=== PATIENT | male | born 1955 | race Caucasian/White ===

== ENCOUNTER 2018-11-07 05:27 | Observation (INO) | payer OTHER ==
--- OUTSIDE RECORDS SUMMARY | 2018-11-07 05:29 | XMS REPORT ---
:1955 Author Organization [facility] Address [address] [place] [address] [address]. [address] [place] [address] Care Team Providers Name Role Phone Unavailable Unavailable Unavailable Payers Payer Name Policy Type Policy Number Effective Date Expiration Date Problems This patient has no known problems. Allergies, Adverse Reactions, Alerts Allergy Allergy Status Severity Reaction(s) Onset Inactive Treating Comments Name Type Date Date Clinician No Known DA Active U 2018-04 Drug - Allergies 00:00:0 0 seasonal DA Active NV 2018-04 allergies -13 00:00:0 0 No Known DA Active NV 2011-01 Drug - Allergies 00:00:0 0 Medications This patient has no known medications.
--- NOTE | 2018-11-07 06:07 | ER ---
Nurse's Notes [facility] Name: Conner Hargrove Jr Age: 63 yrs Sex: Male : 1955 Arrival Date: 11/07/2018 Time: 05:31 Bed 16 Private MD: Diagnosis: Essential (primary) hypertension;Other chest pain;Hypokalemia Presentation: 11/07 05:15 Presenting complaint: EMS states: PT reports having chest pain that started at 0200, jb4 comes and goes, denies SOB. Radiates to right shoulder and back, reports having chills. 05:15 Transition of care: patient was not received from another setting of care. Onset of jb4 symptoms was November 07, 2018. Risk Assessment: Do you want to hurt yourself or someone else? Patient reports no desire to harm self or others. Initial Sepsis Screen: Does the patient meet any 2 criteria? No. Patient's initial sepsis screen is negative. Does the patient have a suspected source of infection? No. Patient's initial sepsis screen is negative. Care prior to arrival: Medication(s) given: ASA, 81 mg, x 4, IV initiated. 20 GA, in the left antecubital area. 05:15 Method Of Arrival: EMS: [facility] jb4 05:15 Acuity: PAKO 3 jb4 Historical: - Allergies: 05:15 No Known Allergies; jb4 - Home Meds: 05:15 celecoxib Oral [Active]; chlorthalidone Oral [Active]; jb4 - PMHx: 05:15 Edema; jb4 - PSHx: 05:15 right knee; right eye; jb4 - Immunization history:: Adult Immunizations up to date. - Social history:: Smoking status: Patient/guardian denies using tobacco, Patient/guardian denies using alcohol. - Ebola Screening: : No symptoms or risks identified at this time. - Family history:: not pertinent. Screenin:15 Abuse screen: Denies threats or abuse. Nutritional screening: No deficits noted. jb4 Tuberculosis screening: No symptoms or risk factors identified. Fall Risk IV access (20 points). Total Collins Fall Scale indicates No Risk (0-24 pts). Assessment: 05:15 General: Appears in no apparent distress. uncomfortable, Behavior is calm, cooperative, jb4 appropriate for age. Pain: Complains of pain in xyphoid area and mid-sternal area Pain radiates to right scapular area and anterior aspect of right shoulder Pain currently is 3 out of 10 on a pain scale. Pain began 3 hours ago. Is intermittent. Neuro: Level of Consciousness is awake, alert, obeys commands, Oriented to person, place, time, situation. Cardiovascular: Patient's skin is warm and dry. Respiratory: Airway is patent Respiratory effort is even, unlabored, Respiratory pattern is regular, symmetrical. GI: No signs and/or symptoms were reported involving the gastrointestinal system. : No signs and/or symptoms were reported regarding the genitourinary system. EENT: No signs and/or symptoms were reported regarding the EENT system. Derm: Skin is intact, Skin is pink, warm \\T\\ dry. Musculoskeletal: Circulation, motion, and sensation intact. 06:31 Reassessment: Patient appears in no apparent distress at this time. Patient and/or jb4 family updated on plan of care and expected duration. Pain level reassessed. Patient is alert, oriented x 3, equal unlabored respirations, skin warm/dry/pink. 07:27 Reassessment: pt returned from CT via stretcher, pt in exam room and on monitor, pt sg requesting something to drink, educated on need to wait for CT scan results prior to eating/drinking, pt stated " so Im going to have to wait another 30 mins to an hour before i can drink anything." confirmed with pt, will continue to monitor. 09:00 Reassessment: Patient appears in no apparent distress at this time. Patient and/or ca1 family updated on plan of care and expected duration. Pain level reassessed. Patient is alert, oriented x 3, equal unlabored respirations, skin warm/dry/pink. 09:57 Reassessment: Patient appears in no apparent distress at this time. Patient and/or ca1 family updated on plan of care and expected duration. Pain level reassessed. Patient is alert, oriented x 3, equal unlabored respirations, skin warm/dry/pink. Vital Signs: 05:15 BP 135 / 74; Pulse 80; Resp 19; Temp 99.0(TE); Pulse Ox 95% ; Weight 136.08 kg (R); jb4 Height 6 ft. 2 in. (187.96 cm) (R); Pain 3/10; 06:00 BP 113 / 72 RA; Pulse 82; Resp 16; Pulse Ox 94% ; jb4 06:10 BP 125 / 82 LA; Pulse 83; Resp 18; Pulse Ox 94% on R/A; jb4 08:54 BP 115 / 92; Pulse 85; Resp 16 S; Pulse Ox 95% on R/A; ca1 09:57 BP 136 / 79; Pulse 81; Resp 16 S; Temp 98.6(O); Pulse Ox 97% ; ca1 05:15 Body Mass Index 38.52 (136.08 kg, 187.96 cm) jb4 ED Course: 05:15 Arm band placed on left wrist. jb4 05:15 Patient has correct armband on for positive identification. Placed in gown. Bed in low jb4 position. Call light in reach. Side rails up X 1. front desk monitor on. Pulse ox on. NIBP on. 05:31 Patient arrived in ED. jb4 05:33 Erasmo Centeno MD is Attending Physician. laura 05:36 Triage completed. jb4 05:44 Den Castro, RN is Primary Nurse. jb4 06:02 Anup Nunez MD is Hospitalizing Provider. laura 06:11 XRAY Chest (1 view) In Process Unspecified. EDMS 06:49 Radiology exam delayed due to lab results not completed at this time. (BUN/Creatinine). kw1 07:19 CT Aorta for Dissection In Process Unspecified. EDMS 07:21 Primary Nurse role handed off by Den Castro, RN sg 07:21 Miles Lord, TISHA is Primary Nurse. sg 09:48 No provider procedures requiring assistance completed. Maintain EMS IV. Dressing ca1 intact. Good blood return noted. Site clean \\T\\ dry. Gauge \\T\\ site: 20 LAC. Patient admitted, IV remains in place. Administered Medications: 05:54 Not Given (PT recieved from EMS prior to arrival): Aspirin Chewable Tablet 324 mg PO jb4 once; 81 mg tablets x 4 06:11 Not Given (Patient Refused): Pepcid 20 mg IVP once jb4 06:27 Not Given (Patient Refused): Lopressor 25 mg PO once jb4 09:00 Drug: Potassium Effervescent Tablet 25 mEq Route: PO; ca1 09:57 Follow up: Response: No adverse reaction ca1 Outcome: 06:06 Decision to Hospitalize by Provider. laura 09:48 Admitted to Med/surg accompanied by tech, via wheelchair, room 208, with chart, Report ca1 called to Aracelis Liang RN 09:48 Condition: stable 09:48 Instructed on the need for admit. 09:58 Patient left the ED. ca1 Signatures: Dispatcher [employer] EDMS Miles Lord, RN Erasmo Briggs MD MD cha Bryson, James, RN RN jb4 Gladis Ayala 1 Leilani Reyes RN RN ca1
--- NOTE | 2018-11-07 06:07 | EDPHYS ---
Physician Documentation [facility] Name: Conner Hargrove Jr Age: 63 yrs Sex: Male : 1955 Arrival Date: 11/07/2018 Time: 05:31 Bed 16 Private MD: ED Physician Erasmo Centeno HPI: 11/07 05:59 This 63 yrs old Male presents to ER via EMS with complaints of chest pain laura back pain and shoulder pain. 05:59 The patient or guardian reports chest pain that is located primarily in the substernal laura area. Onset: this morning. The pain radiates to the right shoulder, Associated signs and symptoms: The patient has no apparent associated signs or symptoms. The chest pain is described as a pressure. Modifying factors: The symptoms are alleviated by nothing. the symptoms are aggravated by nothing. Severity of pain: At its worst the pain was mild in the emergency department the pain is unchanged. The patient has not experienced similar symptoms in the past. Historical: - Allergies: 05:15 No Known Allergies; jb4 - Home Meds: 05:15 celecoxib Oral [Active]; chlorthalidone Oral [Active]; jb4 - PMHx: 05:15 Edema; jb4 - PSHx: 05:15 right knee; right eye; jb4 - Immunization history:: Adult Immunizations up to date. - Social history:: Smoking status: Patient/guardian denies using tobacco, Patient/guardian denies using alcohol. - Ebola Screening: : No symptoms or risks identified at this time. - Family history:: not pertinent. ROS: 05:59 Constitutional: Negative for fever, chills, and weight loss, Eyes: Negative for injury, laura pain, redness, and discharge, ENT: Negative for injury, pain, and discharge, Neck: Negative for injury, pain, and swelling, Respiratory: Negative for shortness of breath, cough, wheezing, and pleuritic chest pain, Abdomen/GI: Negative for abdominal pain, nausea, vomiting, diarrhea, and constipation, Back: Negative for injury and pain, : Negative for injury, bleeding, discharge, and swelling, MS/Extremity: Negative for injury and deformity, Skin: Negative for injury, rash, and discoloration, Neuro: Negative for headache, weakness, numbness, tingling, and seizure, Psych: Negative for depression, anxiety, suicide ideation, homicidal ideation, and hallucinations, Allergy/Immunology: Negative for hives, rash, and allergies, Endocrine: Negative for neck swelling, polydipsia, polyuria, polyphagia, and marked weight changes, Hematologic/Lymphatic: Negative for swollen nodes, abnormal bleeding, and unusual bruising. 05:59 Cardiovascular: Positive for chest pain, of the chest. Exam: 05:59 Constitutional: This is a well developed, well nourished patient who is awake, alert, laura and in no acute distress. Head/Face: Normocephalic, atraumatic. Eyes: Pupils equal round and reactive to light, extra-ocular motions intact. Lids and lashes normal. Conjunctiva and sclera are non-icteric and not injected. Cornea within normal limits. Periorbital areas with no swelling, redness, or edema. ENT: Nares patent. No nasal discharge, no septal abnormalities noted. Tympanic membranes are normal and external auditory canals are clear. Oropharynx with no redness, swelling, or masses, exudates, or evidence of obstruction, uvula midline. Mucous membranes moist. Neck: Trachea midline, no thyromegaly or masses palpated, and no cervical lymphadenopathy. Supple, full range of motion without nuchal rigidity, or vertebral point tenderness. No Meningismus. Chest/axilla: Normal chest wall appearance and motion. Nontender with no deformity. No lesions are appreciated. Cardiovascular: Regular rate and rhythm with a normal S1 and S2. No gallops, murmurs, or rubs. Normal PMI, no JVD. No pulse deficits. Respiratory: Lungs have equal breath sounds bilaterally, clear to auscultation and percussion. No rales, rhonchi or wheezes noted. No increased work of breathing, no retractions or nasal flaring. Abdomen/GI: Soft, non-tender, with normal bowel sounds. No distension or tympany. No guarding or rebound. No evidence of tenderness throughout. Back: No spinal tenderness. No costovertebral tenderness. Full range of motion. Male : Normal genitalia with no discharge or lesions. Skin: Warm, dry with normal turgor. Normal color with no rashes, no lesions, and no evidence of cellulitis. MS/ Extremity: Pulses equal, no cyanosis. Neurovascular intact. Full, normal range of motion. Neuro: Awake and alert, GCS 15, oriented to person, place, time, and situation. Cranial nerves II-XII grossly intact. Motor strength 5/5 in all extremities. Sensory grossly intact. Cerebellar exam normal. Normal gait. Psych: Awake, alert, with orientation to person, place and time. Behavior, mood, and affect are within normal limits. 05:59 Musculoskeletal/extremity: DVT Exam: No signs of deep vein thrombosis. no pain, no swelling, no tenderness, negative Homans' sign noted on exam, no appreciated bluish discoloration, no erythema, no increased warmth. Vital Signs: 05:15 BP 135 / 74; Pulse 80; Resp 19; Temp 99.0(TE); Pulse Ox 95% ; Weight 136.08 kg (R); jb4 Height 6 ft. 2 in. (187.96 cm) (R); Pain 3/10; 06:00 BP 113 / 72 RA; Pulse 82; Resp 16; Pulse Ox 94% ; jb4 06:10 BP 125 / 82 LA; Pulse 83; Resp 18; Pulse Ox 94% on R/A; jb4 08:54 BP 115 / 92; Pulse 85; Resp 16 S; Pulse Ox 95% on R/A; ca1 09:57 BP 136 / 79; Pulse 81; Resp 16 S; Temp 98.6(O); Pulse Ox 97% ; ca1 05:15 Body Mass Index 38.52 (136.08 kg, 187.96 cm) jb4 MDM: 05:33 Patient medically screened. [facility] 06:01 Data reviewed: vital signs, nurses notes, lab test result(s), EKG, radiologic studies, [facility] CT scan, plain films. 11/07 05:34 Order name: Basic Metabolic Panel [facility] 11/07 05:34 Order name: CBC with Diff; Complete Time: 06:59 [facility] 11/07 05:34 Order name: LFT's [facility] 11/07 05:34 Order name: Magnesium; Complete Time: 07:06 [facility] 11/07 05:34 Order name: NT PRO-BNP; Complete Time: 07:06 [facility] 11/07 05:34 Order name: PT-INR; Complete Time: 06:59 [facility] 11/07 05:34 Order name: Troponin (emerg Dept Use Only); Complete Time: 07:06 [facility] 11/07 05:34 Order name: XRAY Chest (1 view); Complete Time: 08:36 [facility] 11/07 05:34 Order name: Lipase; Complete Time: 07:06 [facility] 11/07 05:35 Order name: Basic Metabolic Panel; Complete Time: 07:06 [facility] 11/07 05:35 Order name: Liver (Hepatic) Function; Complete Time: 07:06 [facility] 11/07 05:58 Order name: CT Aorta for Dissection; Complete Time: 08:36 [facility] 11/07 08:06 Order name: Troponin I [facility] 11/07 09:46 Order name: Urine Dipstick--Ancillary (enter results) em1 11/07 05:34 Order name: EKG; Complete Time: 05:36 [facility] 11/07 05:34 Order name: Cardiac monitoring; Complete Time: 05:54 [facility] 11/07 05:34 Order name: EKG - Nurse/Tech; Complete Time: 05:54 [facility] 11/07 05:34 Order name: IV Saline Lock; Complete Time: 05:54 [facility] 11/07 05:34 Order name: Labs collected and sent; Complete Time: 05:54 [facility] 11/07 05:34 Order name: O2 Per Protocol; Complete Time: 05:54 [facility] 11/07 08:06 Order name: CONS Physician Consult [facility] 11/07 08:06 Order name: Heart Healthy [facility] 11/07 08:06 Order name: Echo with Doppler [facility] 11/07 08:06 Order name: EKG Electrocardiogram [facility] 11/07 08:06 Order name: EKG Electrocardiogram [facility] 11/07 08:06 Order name: EKG Electrocardiogram [facility] 11/07 05:34 Order name: O2 Sat Monitoring; Complete Time: 05:54 [facility] 11/07 05:34 Order name: Urine Dipstick-Ancillary (obtain specimen); Complete Time: 09:41 [facility] 11/07 06:01 Order name: Bilateral blood pressure; Complete Time: 06:27 [facility] Administered Medications: 05:54 Not Given (PT recieved from EMS prior to arrival): Aspirin Chewable Tablet 324 mg PO jb4 once; 81 mg tablets x 4 06:11 Not Given (Patient Refused): Pepcid 20 mg IVP once jb4 06:27 Not Given (Patient Refused): Lopressor 25 mg PO once jb4 09:00 Drug: Potassium Effervescent Tablet 25 mEq Route: PO; ca1 09:57 Follow up: Response: No adverse reaction ca1 Disposition: 11/07/18 06:06 Hospitalization ordered by Anup Nunez for Observation. Preliminary diagnosis are Essential (primary) hypertension, Other chest pain, Hypokalemia. - Bed requested for Telemetry/MedSurg (observation). - Status is Observation. ca1 - Condition is Fair. - Problem is new. - Symptoms have improved. UTI on Admission? No Signatures: Dispatcher [employer] EDMS Erasmo Centeno MD MD cha Martinez, Eric em1 Jaime Smith PA PA jr8 Den Castro, RN RN jb4 Leilani Reyes RN RN ca1 Corrections: (The following items were deleted from the chart) 07:09 06:06 Hospitalization Ordered by Anup Nunez MD for Observation. Preliminary laura diagnosis is Essential (primary) hypertension; Other chest pain. Bed requested for Telemetry/MedSurg (observation). Status is Observation. Condition is Fair. Problem is new. Symptoms have improved. UTI on Admission? No. laura 09:36 07:09 11/07/2018 06:06 Hospitalization Ordered by Anup Nunez MD for Observation. em1 Preliminary diagnosis is Essential (primary) hypertension; Other chest pain; Hypokalemia. Bed requested for Telemetry/MedSurg (observation). Status is Observation. Condition is Fair. Problem is new. Symptoms have improved. UTI on Admission? No. laura 09:58 09:36 11/07/2018 06:06 Hospitalization Ordered by Anup Nunez MD for Observation. ca1 Preliminary diagnosis is Essential (primary) hypertension; Other chest pain; Hypokalemia. Bed requested for Telemetry/MedSurg (observation). Status is Observation. Condition is Fair. Problem is new. Symptoms have improved. UTI on Admission? No. em1
[2018-11-07] MEDS ORDERED: FAMOTIDINE 20 MG/2 ML VIAL IV ONE (06:22)
[2018-11-07 06:23] LABS: Absolute Lymphocytes (CBC) 1.2 K/uL (0.7-4.9); Basophils % 0.7 % (0-1.3); Eosinophils % 2.6 % (0-4.4); Hematocrit 42.9 % (39.6-49.0); Lymphocytes % 10.4 % (15.3-44.8); MPV 8.7 fL (7.6-11.3); Monocytes % 11.3 % (3.3-12.3)
[2018-11-07 06:48] LABS: Protime INR 1.01
[2018-11-07 07:03] LABS: ALT/SGPT 71 U/L (12-78); AST/SGOT 43 U/L (15-37); Albumin 3.7 g/dL (3.4-5.0); BUN Blood Urea Nitrogen 16 mg/dL (7-18); Bicarbonate 28 mmol/L (21-32); Bilirubin Direct 0.1 mg/dL (0-0.2); Bilirubin Total 0.3 mg/dL (0.2-1.0); Glucose Level 101 mg/dL (74-106); Lipase 101 U/L (73-393); Magnesium 1.9 mg/dL (1.8-2.4); NT PRO-BNP 31 pg/mL (<125); Potassium 3.4 mmol/L (3.5-5.1); Protein, Total 7.5 g/dL (6.4-8.2); Sodium Level 140 mmol/L (136-145); Troponin (Emerg Dept Use Only) < 0.02 ng/mL (0.0-0.045)
[2018-11-07 07:04] LABS: Alkaline Phosphatase ND U/L (45-117)
[2018-11-07] MEDS ORDERED: POTASSIUM 25 MEQ EFFERV TAB ONE (07:33)
[2018-11-07] MEDS ORDERED: ALPRAZOLAM 0.25 MG TABLET PO PRN (07:56)
--- NOTE | 2018-11-07 08:06 | P.HP ---
Certification for Inpatient Patient admitted to: Observation With expected LOS: <2 Midnights Patient will require the following post-hospital care: None Practitioner: I am a practitioner with admitting privileges, knowledge of patient current condition, hospital course, and medical plan of care. Services: Services provided to patient in accordance with Admission requirements found in Title 42 Section 412.3 of the Code of Federal Regulations Patient History Date of Service: 11/07/18 Reason for admission: Chest pain rule out acute coronary syndrome History of Present Illness: Patient is a 63-year-old gentleman who came into the hospital with chest pain. He states the pain was mainly on the right side of his chest and went to the right arm. He has had issues in the past with chest pain but is workups have been negative. He does have spontaneous elevated blood pressure which in the past was related to being the etiology of his chest discomfort. Patient had been working in his yd as well during the day. He also went to the chiropractor because his back was hurting after yd work today. I believe this could be musculoskeletal. However, at his age and with his risk factors it may be best to admit him and rule out for acute coronary syndrome. Allergies No Known Allergies Allergy (Unverified 11/07/18 07:20) - Past Medical/Surgical History Past Medical History: Patient denies medical history Past Surgical History: Patient denies surgical history - Family History Father Family History: Reviewed- Non-Contributory - Social History Smoking Status: Never smoker Alcohol use: No CD- Drugs: No Review of Systems 10-point ROS is otherwise unremarkable Physical Examination - Vital Signs Temperature: 98 F Blood Pressure: 120/70 Pulse: 80 Respirations: 18 Pulse Ox (%): 96 - Physical Exam General: Alert, In no apparent distress, Oriented x3 HEENT: Atraumatic, PERRLA, Mucous membr. moist/pink, EOMI, Sclerae nonicteric Neck: Supple, 2+ carotid pulse no bruit, No LAD, Without JVD or thyroid abnormality Respiratory: Clear to auscultation bilaterally, Normal air movement Cardiovascular: Regular rate/rhythm, Normal S1 S2, No murmurs Gastrointestinal: Normal bowel sounds, Soft and benign, Non-distended, No tenderness, No rebound, No guarding Musculoskeletal: No clubbing, No swelling, No tenderness Integumentary: No rashes Neurological: Normal gait, Normal speech, Normal strength at 5/5 x4 extr, Normal tone, Sensation intact, Cranial nerves 3-12 intact, Normal affect Lymphatics: No axilla or inguinal lymphadenopathy - Studies Laboratory Data (last 24 hrs) 11/07/18 06:10: PT 11.9, INR 1.01 11/07/18 06:00: WBC 11.6 H, Hgb 14.6, Hct 42.9, Plt Count 226 11/07/18 06:00: Sodium 140, Potassium 3.4 L, BUN 16, Creatinine 0.92, Glucose 101, Magnesium 1.9, Total Bilirubin 0.3, AST 43 H, ALT 71, Alkaline Phosphatase ND, Lipase 101 Assessment & Plan - Problems (Diagnosis) (1) Chest pain, rule out acute myocardial infarction Current Visit: Yes Status: Acute (2) Myalgia Current Visit: Yes Status: Acute - Plan 1. Serial troponins and EKG 2. Cardiology consultation 3. Echocardiogram in AM 4. Anti-platelet therapy, beta-mana not recommended because of low BP, statin , and O2 as needed 5. IV morphine for pain 6. GI prophylaxis Discharge Plan: Home Plan to discharge in: 24 Hours - Advance Directives Does patient have a Living Will: No Does patient have a Durable POA for Healthcare: No - Code Status/Comfort Care Code Status Assessed: Yes Code Status: Full Code Critical Care: No Time Spent Managing PTS Care (In Minutes): 45
--- NOTE | 2018-11-07 08:10 | RAD REPORT ---
EXAM DESCRIPTION: CT - Angio Aorta For Dissection - 11/07/2018 7:19 am CLINICAL HISTORY: Chest pain radiating to the back. CHEST PAIN COMPARISON: No comparisons TECHNIQUE: CT angiography of the aorta was performed with MIPs. All CT scans are performed using dose optimization technique as appropriate and may include automated exposure control or mA/KV adjustment according to patient size. FINDINGS: A left aortic arch is present with normal branching pattern of the great vessels.No acute aortic finding is seen such as aneurysm, penetrating ulcer or dissection. The celiac axis, SMA, NANNETTE and renal arteries are widely patent. No evidence of pulmonary embolism. Mild linear subsegmental atelectasis is present in the right lung base. The lungs are otherwise clear . No focal nodule, mass or infiltrate detected. Diffuse fatty liver is present.No focal liver mass or intrahepatic biliary dilatation.The spleen, galindo creas, adrenal glands and left kidney are within normal limits for arterial phase imaging.Small nonob structing stone is present in the right kidney. No bowel obstruction, free fluid or abscess.No pathologic enlarged lymphadenopathy identified. No fracture or worrisome bone lesion seen. IMPRESSION: No acute aortic finding is demonstrated. Fatty liver. Small right renal calculus.
--- NOTE | 2018-11-07 08:25 | RAD REPORT ---
EXAM DESCRIPTION: RAD - Chest Single View - 11/07/2018 6:11 am CLINICAL HISTORY: CHEST PAIN Chest pain. COMPARISON: No comparisons FINDINGS: Portable technique limits examination quality. The lungs are grossly clear. The heart is normal in size. No displaced fractures. IMPRESSION: No acute intrathoracic process suspected.
[2018-11-07] MEDS ORDERED: ASPIRIN 325 MG TAB PO SCH (09:00)
[2018-11-07] MEDS ORDERED: ENOXAPARIN 40 MG/0.4 ML SQ SCH (09:00)
[2018-11-07 10:08] LABS: Urine Blood NEGATIVE (NEG); Urine Glucose NEGATIVE (NEG); Urine Protein NEGATIVE (NEG); Urine Specific Gravity 1.015 (1.005-1.030)
--- NOTE | 2018-11-07 10:56 | EKG ---
Test Date: 2018-11-07 Test Time: 05:42:05 [employer] Autobody Repairer: AQUILES MEASUREMENT RESULTS: Intervals: Rate: 79 DE: 176 QRSD: 104 QT: 374 QTc: 428 [place]: P: -1 DE: 176 QRS: -21 T: 22 INTERPRETIVE STATEMENTS: Normal sinus rhythm Normal ECG Compared to ECG 04/28/2000 04:55:00 Ventricular premature complex(es) no longer present Electronically Signed On 11-07-18 10:54:46 CDT by Manish Gaytan
--- NOTE | 2018-11-07 10:56 | EKG ---
Test Date: 2018-11-07 Test Time: 05:52:06 Seat Builder: AQUILES MEASUREMENT RESULTS: Intervals: Rate: 80 SD: 176 QRSD: 100 QT: 368 QTc: 424 [place]: P: -6 SD: 176 QRS: -22 T: 26 INTERPRETIVE STATEMENTS: Normal sinus rhythm Normal ECG Compared to ECG 11/07/2018 05:42:05 No significant changes Electronically Signed On 11-07-18 10:54:45 CDT by Manish Gaytan
--- NOTE | 2018-11-07 14:12 | ECHO ---
HEIGHT: 6 ft 2 in WEIGHT: 136 lb oz DATE OF STUDY: 11/07/[address]: Anup Nunez MD 2-DIMENSIONAL: YES M.MODE: YES DOPPLER: YES COLOR FLOW: YES TDS: NO PORTABLE: NO DEFINITY: NO BUBBLE STUDY: NO DIAGNOSIS: CHEST PAIN/ RULE OUT ACUTE CORONARY SYNDROME CARDIAC HISTORY: CATHERIZATION: NO SURGERY: NO PROSTHETIC VALVE: NO PACEMAKER: NO MEASUREMENTS (cm) DIASTOLIC (NORMALS) SYSTOLIC (NORMALS) IVSd 0.9 (0.6-1.2) LA Diam 3.4 (1.9-4.0) LVEF 57% LVIDd 3.6 (3.5-5.7) LVIDs 2.6 (2.0-3.5) %FS 29% LVPWd 1.0 (0.6-1.2) Ao Diam 3.1 (2.0-3.7) 2 DIMENSIONAL ASSESSMENT: RIGHT ATRIUM: NORMAL LEFT ATRIUM: NORMAL RIGHT VENTRICLE: NORMAL LEFT VENTRICLE: NORMAL TRICUSPID VALVE: NORMAL MITRAL VALVE: NORMAL PULMONIC VALVE: NORMAL AORTIC VALVE: NORMAL PERICARDIAL EFFUSION: NONE AORTIC ROOT: NORMAL LEFT VENTRICULAR WALL MOTION: NORMAL. DOPPLER/COLOR FLOW: NORMAL. COMMENTS: NORMAL 2D ECHO WITH DOPPLER. NO WALL MOTION ABNORMALITY. NO EFFUSION. TECHNOLOGIST: MARZENA MARY
--- NOTE | 2018-11-07 14:40 | P.SSS ---
Patient History Date of Service: 11/07/18 Reason for admission: Chest pain rule out acute coronary syndrome History of Present Illness: Patient is a 63-year-old gentleman who came into the hospital with chest pain. He states the pain was mainly on the right side of his chest and went to the right arm. He has had issues in the past with chest pain but is workups have been negative. He does have spontaneous elevated blood pressure which in the past was related to being the etiology of his chest discomfort. Patient had been working in his [employer] as well during the day. He also went to the chiropractor because his back was hurting after [employer] work today. I believe this could be musculoskeletal. However, at his age and with his risk factors it may be best to admit him and rule out for acute coronary syndrome. Allergies No Known Allergies Allergy (Verified 11/07/18 10:16) Home Medications: Aspirin Chewable [Aspirin Chewable*] 81 mg PO DAILY 11/07/18 Celecoxib [Celebrex*] 200 mg PO DAILY 11/07/18 Chlorthalidone [Hygroton 25mg Tab*] 25 mg PO DAILY 11/07/18 - Past Medical/Surgical History Has patient received pneumonia vaccine in the past: No Diabetic: No Past Medical History: Reviewed- Non-Contributory Past Surgical History: Reviewed- Non-Contributory -: Knee Surgery 2017 -: Elbow Surgery- Bone spur 1989 -: Detached retina Right eye surgery 2018 - Family History Father -: Stroke, Cancer Notes: DM type II, proctate cancer Mother -: Other (see notes) Notes: Cirrhosis, Hep C - Social History Smoking Status: Never smoker Alcohol use: No CD- Drugs: No Caffeine use: No Place of Residence: Home Review of Systems 10-point ROS is otherwise unremarkable Physical Examination - Vital Signs Temperature: 98.6 F Blood Pressure: 136/79 Pulse: 81 Respirations: 16 Pulse Ox (%): 96 - Physical Exam General: Alert, In no apparent distress HEENT: Atraumatic, PERRLA, Mucous membr. moist/pink, EOMI, Sclerae nonicteric Neck: Supple, 2+ carotid pulse no bruit, No LAD, Without JVD or thyroid abnormality Respiratory: Clear to auscultation bilaterally, Normal air movement Cardiovascular: Regular rate/rhythm, Normal S1 S2 Gastrointestinal: Normal bowel sounds, No tenderness Musculoskeletal: No tenderness Integumentary: No rashes Neurological: Normal gait, Normal speech, Normal strength at 5/5 x4 extr, Normal tone, Normal affect Lymphatics: No axilla or inguinal lymphadenopathy - Studies Laboratory Data (last 24 hrs) 11/07/18 06:10: PT 11.9, INR 1.01 11/07/18 06:00: WBC 11.6 H, Hgb 14.6, Hct 42.9, Plt Count 226 11/07/18 06:00: Sodium 140, Potassium 3.4 L, BUN 16, Creatinine 0.92, Glucose 101, Magnesium 1.9, Total Bilirubin 0.3, AST 43 H, ALT 71, Alkaline Phosphatase ND, Lipase 101 - Diagnosis (Problem(s)) (1) Chest pain, rule out acute myocardial infarction Current Visit: Yes Status: Acute (2) Myalgia Current Visit: Yes Status: Acute - Disposition Disposition: ROUTINE DISCHARGE Condition: GOOD Diet: Regular Activity: Ad howie
--- NOTE | 2018-11-08 02:23 | CON ---
Date of Consultation: 11/07/2018 The patient admitted on 11/07/2018. I saw the patient on 11/07/2018. Reason For Consultation: Chest pain. History Of Present Illness: Mr. Hargrove is a 63-year-old male with history of hypertension, recent tot al knee replacement, for which he takes aspirin, Celebrex, and Hygroton. Apparently was also diagnos ed with detached retina bilaterally. He had been working hard in the heat and when he stopped, had c hest pain that radiated to the right side of the back and the throat and was more of a burning sensat ion. No nausea, vomiting, diaphoresis, PND, orthopnea, pedal edema, palpitations, or syncope. He self d a potassium of 3.4, white count of 11,000. He has had some chills, but no fever, no cough. He has already had a normal echocardiogram, normal EKG, normal CPKs, MBs, troponin, and chest x-ray. Past Medical History: As stated above. Medications: As stated earlier. Allergies: NONE. Review of Systems: Negative. Social History: Negative. Family History: Noncontributory. Physical Examination: Vital Signs: He weighed 300 pounds. Vital signs were stable, afebrile. HEENT: Negative. Neck: Supple with no bruit. Chest: Clear to auscultation and percussion. Cardiac: Revealed a regular rhythm and rate. No murmurs, gallops, or rubs. Abdomen: Benign. Extremities: Revealed no clubbing, cyanosis, or edema. Diagnostic Data: As stated earlier. Impression And Plan: 1.Atypical chest pain, more likely related to gastroesophageal reflux. 2.Hypokalemia. 3.Elevated white count. 4.Obesity. 5.History of bilateral retinal detachment. 6.Hypertension. So far, Mr. Hargrove has had a normal EKG, normal echo, normal x-ray, and normal CPKs, MBs, and troponin. He is asymptomatic. I would suggest a proton pump inhibitor, discharge home. I will make arrangements for him to have an outpatient stress test in the near future. VINNY/YANA Voice ID: [id number] Report ID: [id number]
--- NOTE | 2018-11-08 06:57 | EKG ---
Test Date: 2018-11-07 Test Time: 10:43:04 Automation Manager: JAYDE MEASUREMENT RESULTS: Intervals: Rate: 86 CA: 180 QRSD: 92 QT: 366 QTc: 437 Thelma: P: 23 CA: 180 QRS: -12 T: 38 INTERPRETIVE STATEMENTS: Normal sinus rhythm Normal ECG Compared to ECG 11/07/2018 05:52:06 No significant changes Electronically Signed On 11-08-18 06:53:41 CDT by Manish Gaytan
== END 2018-11-07 16:05 | disposition home or self-care (01) ==
LOC: ER 05:27 → ERHOLD 07:56 → 2ND 09:50
PROVIDERS: ADMIT Hospitalist; ATTEND Hospitalist
DX: R07.9 Chest pain, unspecified (principal); E87.6 Hypokalemia; I10 Essential (primary) hypertension; M79.10 Myalgia, unspecified site; E66.9 Obesity, unspecified; Z68.38 Body mass index [BMI] 38.0-38.9, adult; Z79.82 Long term (current) use of aspirin; Z96.659 Presence of unspecified artificial knee joint; D72.829 Elevated white blood cell count, unspecified
CPT/HCPCS: 36415; 71045; 71275; 74175; 80048; 80076; 81003; 83690; 83735; 83880; 84484; 85025; 85610; 93005; 93306; 99285; G0378; J1650; Q9967

== ENCOUNTER 2018-12-18 06:58 | Day surgery (SDC) | payer OTHER ==
--- OUTSIDE RECORDS SUMMARY | 2018-12-18 07:00 | XMS REPORT ---
:1955 [facility] Address [address] [place] [address] Care Team Providers Name Role Phone Unavailable Unavailable Unavailable Payers Payer Name Policy Type Policy Number Effective Date Expiration Date Problems This patient has no known problems. Allergies, Adverse Reactions, Alerts Allergy Allergy Status Severity Reaction(s) Onset Inactive Treating Comments Name Type Date Date Clinician No Known DA Active U 2018-04 Drug -13 Allergies 00:00:0 0 seasonal DA Active NE 2018-04 allergies -13 00:00:0 0 No Known DA Active NE 2011-01 Drug -22 Allergies 00:00:0 0 Medications This patient has no known medications. Results Test Description Test Time Test Comments Text Results Atomic Results Result Comments - MRI UP JNT W/O CONT LT 2018-11-23 08:32:00 Patient Name: BEATRIZ NEWBERRY Unit No: [id number] EXAMS: CPT CODE: [id number] MRI UP JNT W/[place] [address] EXAM: MRI LEFT SHOULDER WITHOUT CONTRAST DIAGNOSIS: 1. There is a full-thickness tear distal supraspinatus tendon which measures approximately 1 cm in AP diameter and is retracted approximately 1.5 cm. This is superimposed on severe supraspinatus tendinosis. No muscle belly atrophy. 2. Marked infraspinatus tendinosis. Partial-thickness interstitial tear distal infraspinatus tendon. 3. Undersurface tear inferior two thirds of the distal subscapularis tendon superimposed on tendinosis. 4. Marked AC joint arthrosis with expansion the joint capsule and impingement. Inflammatory fluid is seen to project superiorly into the adjacent subcutaneous soft tissues compatible with capsular disruption. 5. Mild labral degeneration. No evidence of labral tear. INDICATION: Left shoulder pain TECHNIQUE: Paracoronal fat sat T2, parasagittal T2 and fat sat T2 and axial T1 and fat-sat spin density sequences are obtained of the left shoulder without contrast. COMPARISON: None DISCUSSION: Osseous acromion outlet: The acromion is shallow type II, with mild lateral downsloping. Marked AC joint arthrosis is noted. Rotator cuff: Supraspinatus, subscapularis and infraspinatus tendinopathy and tearing as described. Biceps tendon and anchor: The biceps anchor is intact. The biceps tendon is unremarkable, without evidence of dislocation. Labral and capsular structures: Labral degeneration. No detached labral tear is seen. No Bankart lesion is identified. Osseous structures: No evidence of fracture or avascular necrosis. at 0832 Reported and signed by: Katia Morris MD CC: Scot Ureña MD Technologist: Shiv Kong(R) Transcribed D/ (0832) JazmyneG [facility] NAME: BEATRIZ NEWBERRY JR [address] [facility] PHYS: GOMMU. - Scot Ureña : 1955 AGE: 63 SEX: M [place], [place] [address] LOC: Y.MRI PHONE #: [phone] EXAM DATE: 11/22/2018 STATUS: DEP CLI FAX #: [phone] RAD #: D/C DT PAGE 1 Signed Report Patient Name: BEATRIZ NEWBERRY JR Unit No: [id number] EXAMS: CPT CODE: [id number] MRI UP JNT W/[place] [address] <Continued> Orig Print D/T: S: 11/23/2018 (0835) [facility] NAME: BEATRIZ NEWBERRY JR [address] [facility] PHYS: GOMMU. - Scot Ureña : 1955 AGE: 63 SEX: M [place], [place] [address] LOC: Y.MRI PHONE #: [phone] EXAM DATE: 11/22/2018 STATUS: DEP CLI FAX #: [phone] RAD #: D/C DT PAGE 2 Signed Report
[2018-12-18] MEDS ORDERED: TETRACAINE HCL 0.5% 4ML OPTH ONE (07:24)
[2018-12-18] MEDS ORDERED: LIDOCAINE 2% MPF 5 ML VIAL ONE (07:24)
[2018-12-18] MEDS ORDERED: NA CHLORIDE 0.9% 500 ML ONE (07:24)
[2018-12-18] MEDS ORDERED: LIDOCAINE HCL/PF 3.5% OPTH GEL ONE (07:24)
[2018-12-18] MEDS ORDERED: BUPIVACAINE 0.25% PF 10 ML VIAL ONE (07:24)
[2018-12-18] MEDS: PHENYLEPHRINE 10% OPTH 5ML ONE ×3 (07:40→07:50)
[2018-12-18] MEDS: CYCLOPENTOLATE 1% OPTH 2 ML ONE ×3 (07:40→07:50)
[2018-12-18] MEDS ORDERED: NS 0.9% VIAL 10 ML ONE (07:52)
[2018-12-18] MEDS ORDERED: BALANCED SALT IRRIG PLAIN 500 ML BTL IRR ONE (07:53)
[2018-12-18] MEDS ORDERED: EPINEPHRINE/PF 1 MG/ML AMP ONE ×2 (07:53→09:12)
[2018-12-18] MEDS ORDERED: DUOVISC 1 KIT OPTH ONE (07:54)
[2018-12-18] MEDS ORDERED: MOXIFLOXACIN HCL 10 DROPS/ML **OR USE OPTH ONE (07:55)
[2018-12-18] MEDS ORDERED: LIDOCAINE 1% MPF 2 ML AMPULE ONE (07:55)
[2018-12-18] MEDS ORDERED: FENTANYL CITR 100 MCG/2 ML ONE (08:08)
[2018-12-18] MEDS ORDERED: MIDAZOLAM HCL 2 MG/2 ML INJ ONE (08:09)
--- NOTE | 2018-12-18 09:04 | P.BOP ---
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
--- NOTE | 2018-12-18 18:39 | OP ---
Date of Procedure: 12/18/2018 Surgeon: Charla Milian MD Anesthesiologist: Bob Hicks CRNA Preoperative Diagnosis: Nuclear sclerotic and posterior subcapsular cataract and regular astigmatism, right eye. Operation Performed: Phacoemulsification with toric intraocular lens implant, right eye. Anesthesia: Per cataract surgery. Complications: None. Description Of Procedure: In the operating room the patient was prepped and draped in the usual sterile fashion for ophthalmic surgery. A lid speculum was placed in the right eye. Two paracentesis sites were made superiorly and inferiorly in the limbal cornea. Viscoat was placed in the anterior chamber and a crescent blade was used to make a corneal groove and tunnel, and a keratome was used to enter the anterior chamber. Provisc was placed in the anterior chamber and a 360 degree capsulotomy was performed with a cystitome. The lens was hydrodissected with BSS and rotated freely. The lens was removed with a stop and chop technique. A 13.03 phaco CDE was used to remove the lens. Residual cortex was removed with the irrigation and aspiration. Provisc was placed in the capsular bag. A [id number] +19.0 at 77 degrees lens was placed in the capsular bag without complications. Irrigation and aspiration was used to remove residual viscoelastic. The paracentesis sites were hydrated with BSS. The wound and paracentesis sites were inspected and found to be watertight. Vigamox 0.07 mL was placed intracamerally at the end of the procedure. The eye was irrigated with balanced salt solution. The eye was patched with a soft cotton patch and Dillard metal shield. The patient was returned to day surgery in good condition. Comments: Akten was placed in the eye in Day Surgery and irrigated out of the eye with BSS in the OR. Preservative-free lidocaine was placed in the anterior chamber prior to Viscoat. The iris became floppy during irrigation and aspiration and 1:5000 epinephrine was placed in the anterior chamber several times. Discharge Instructions: Mr. Hargrove was discharged to home in good condition and is to follow up with Dr. Milian in the morning. OSCAR/YANA Voice ID: [id number] Report ID: [id number] [facility]ENTER[facility]
== END 2018-12-18 09:34 | disposition home or self-care (01) ==
LOC: OR 06:58
PROVIDERS: ATTEND Ophthalmology Retina Specialist
PROC: 08RJ3JZ Replacement of Right Lens with Synthetic Substitute, Percutaneous Approach (ICD-10-PCS; principal; 2018-12-18 08:30)
DX: H25.11 Age-related nuclear cataract, right eye (principal); H25.041 Posterior subcapsular polar age-related cataract, right eye; H52.221 Regular astigmatism, right eye; I10 Essential (primary) hypertension; M19.90 Unspecified osteoarthritis, unspecified site; E66.01 Morbid (severe) obesity due to excess calories; Z68.38 Body mass index [BMI] 38.0-38.9, adult; Z83.518 Family history of other specified eye disorder; Z83.3 Family history of diabetes mellitus
CPT/HCPCS: 66984; J0171 ×2; J2250; J3010; J2001; V2787; V2630

== ENCOUNTER 2019-02-13 10:58 | Emergency (ER) | payer OTHER ==
--- NOTE | 2019-02-13 13:06 | RAD REPORT ---
EXAM DESCRIPTION: RAD - Abdomen 1 View (KUB) - 02/13/2019 12:51 pm CLINICAL HISTORY: CONSTIPATION Pain COMPARISON: No comparisons FINDINGS: The bowel gas pattern is non-obstructive. No evidence of free air or pneumatosis. No suspi cious calcifications. No significant bony findings. Moderate retention of stool in the colon. IMPRESSION: Moderate fecal retention in the colon.
--- NOTE | 2019-02-13 13:11 | EDPHYS ---
Physician Documentation [facility] Name: Conner Hargrove Jr Age: 63 yrs Sex: Male : 1955 Arrival Date: 02/13/2019 Time: 11:01 Bed 16 Private MD: Faisal Gastelum E ED Physician Erasmo Centeno HPI: 02/13 11:49 This 63 yrs old Male presents to ER via Ambulatory with complaints of pm1 Abdominal Pain, Constipation. 11:49 The patient presents with Constipation. Onset: The symptoms/episode began/occurred 7 pm1 week(s) ago. The symptoms do not radiate. Associated signs and symptoms: Pertinent negatives: nausea, vomiting, and diarrhea, chest pain, dysuria, fever, shortness of breath. The symptoms are described as crampy. Modifying factors: The symptoms are alleviated by Patient has taken enemas and has attempted to disimpact himself. Patient reports some small bowel movements throughout the past week. Severity of pain: At its worst the pain was very mild LLQ, similar to prior episodes of constipation. Patient with a history of constipation and he take Colace daily. The patient has experienced similar episodes in the past, multiple times. seen by work clinic MD and told that he might be impacted. Told to go to the ER. Historical: - Allergies: 11:12 No Known Allergies; la1 - PMHx: 11:12 EDEMA; la1 - Immunization history:: Adult Immunizations up to date. - Social history:: Smoking status: Patient/guardian denies using tobacco. - Ebola Screening: : No symptoms or risks identified at this time. ROS: 11:49 Constitutional: Negative for fever, chills, and weight loss, Eyes: Negative for injury, pm1 pain, redness, and discharge, ENT: Negative for injury, pain, and discharge, Neck: Negative for injury, pain, and swelling, Cardiovascular: Negative for chest pain, palpitations, and edema, Respiratory: Negative for shortness of breath, cough, wheezing, and pleuritic chest pain. 11:49 Back: Negative for injury and pain, : Negative for injury, bleeding, discharge, and swelling, MS/Extremity: Negative for injury and deformity, Skin: Negative for injury, rash, and discoloration, Neuro: Negative for headache, weakness, numbness, tingling, and seizure. 11:49 Abdomen/GI: Positive for abdominal pain, constipation, Negative for nausea, vomiting, and diarrhea. Exam: 11:49 Constitutional: This is a well developed, well nourished patient who is awake, alert, pm1 and in no acute distress. Head/Face: Normocephalic, atraumatic. Eyes: Pupils equal round and reactive to light, extra-ocular motions intact. Lids and lashes normal. Conjunctiva and sclera are non-icteric and not injected. Cornea within normal limits. Periorbital areas with no swelling, redness, or edema. ENT: Nares patent. No nasal discharge, no septal abnormalities noted. Tympanic membranes are normal and external auditory canals are clear. Oropharynx with no redness, swelling, or masses, exudates, or evidence of obstruction, uvula midline. Mucous membranes moist. Neck: Trachea midline, no thyromegaly or masses palpated, and no cervical lymphadenopathy. Supple, full range of motion without nuchal rigidity, or vertebral point tenderness. No Meningismus. Chest/axilla: Normal chest wall appearance and motion. Nontender with no deformity. No lesions are appreciated. Cardiovascular: Regular rate and rhythm with a normal S1 and S2. No gallops, murmurs, or rubs. Normal PMI, no JVD. No pulse deficits. Respiratory: Lungs have equal breath sounds bilaterally, clear to auscultation and percussion. No rales, rhonchi or wheezes noted. No increased work of breathing, no retractions or nasal flaring. 11:49 Back: No spinal tenderness. No costovertebral tenderness. Full range of motion. Skin: Warm, dry with normal turgor. Normal color with no rashes, no lesions, and no evidence of cellulitis. MS/ Extremity: Pulses equal, no cyanosis. Neurovascular intact. Full, normal range of motion. 11:49 Abdomen/GI: Inspection: obese Bowel sounds: normal, Palpation: abdomen is soft and non-tender, in all quadrants, mass, is not appreciated, rebound tenderness, is not appreciated. 11:49 Neuro: Orientation: is normal, Motor: is normal, moves all fours. Vital Signs: 11:13 BP 135 / 95; Pulse 81; Resp 16; Temp 98.1; Pulse Ox 100% on R/A; Weight 136.08 kg; la1 Height 6 ft. 2 in. (187.96 cm); 12:52 BP 127 / 83; Pulse 68; Resp 16; Pulse Ox 99% ; bp 13:44 BP 125 / 80; Pulse 72; Resp 16; Temp 98; Pulse Ox 100% ; bp 11:13 Body Mass Index 38.52 (136.08 kg, 187.96 cm) la1 MDM: 11:23 Patient medically screened. [facility] 13:10 Data reviewed: vital signs. Counseling: I had a detailed discussion with the patient pm1 and/or guardian regarding: the historical points, exam findings, and any diagnostic results supporting the discharge/admit diagnosis, radiology results, the need for outpatient follow up, to return to the emergency department if symptoms worsen or persist or if there are any questions or concerns that arise at home. 02/13 11:36 Order name: Abdomen 1 View (KUB) XRAY; Complete Time: 13:09 pm1 Administered Medications: No medications were administered Disposition: 02/14 05:47 Co-signature as Attending Physician, Erasmo Centeno MD I agree with the assessment and [facility] plan of care. Disposition: 02/13/19 13:10 Discharged to Home. Impression: Constipation, unspecified. - Condition is Stable. - Discharge Instructions: Constipation, Adult, High-Fiber Diet. - Prescriptions for Lactulose 10 gram/15 mL Oral Solution - take 30 milliliter by ORAL route once daily; 300 milliliter. - Medication Reconciliation Form, Thank You Letter, Antibiotic Education, Prescription Opioid Use form. - Follow up: Emergency Department; When: As needed; Reason: Worsening of condition. Follow up: Private Physician; When: 2 - 3 days; Reason: Recheck today's complaints, Continuance of care, Re-evaluation by your physician. - Problem is new. - Symptoms are unchanged. Signatures: Dispatcher [employer] Erasmo Irwin MD MD cha Attema, Lee, RN RN la1 Bryan Gibson, [employer] DIRECT[employer] pm1 Benjie Mojica RN RN bp Corrections: (The following items were deleted from the chart) 02/13 13:46 13:10 02/13/2019 13:10 Discharged to Home. Impression: Constipation, unspecified. bp Condition is Stable. Forms are Medication Reconciliation Form, Thank You Letter, Antibiotic Education, Prescription Opioid Use. Follow up: Emergency Department; When: As needed; Reason: Worsening of condition. Follow up: Private Physician; When: 2 - 3 days; Reason: Recheck today's complaints, Continuance of care, Re-evaluation by your physician. Problem is new. Symptoms are unchanged. pm1
--- NOTE | 2019-02-13 13:11 | ER ---
Nurse's Notes [facility] Name: Conner Hargrove Jr Age: 63 yrs Sex: Male : 1955 Arrival Date: 02/13/2019 Time: 11:01 Bed 16 Private MD: Faisal Gastelum E Diagnosis: Constipation, unspecified Presentation: 02/13 11:11 Presenting complaint: Patient states: I went to my PCP and they told me I was impacted la1 and to come here, have tried mineral oil and fleets enemas at home without relief, last normal BM was one week prior. Transition of care: patient was not received from another setting of care. Onset of symptoms was February 13, 2019. Risk Assessment: Do you want to hurt yourself or someone else? Patient reports no desire to harm self or others. Initial Sepsis Screen: Does the patient meet any 2 criteria? No. Patient's initial sepsis screen is negative. Does the patient have a suspected source of infection? No. Patient's initial sepsis screen is negative. Care prior to arrival: None. 11:11 Method Of Arrival: Ambulatory la1 11:11 Acuity: PAKO 3 la1 Triage Assessment: 11:15 General: Appears in no apparent distress. comfortable, Behavior is cooperative, bp appropriate for age, anxious. Pain: Complains of pain in abdomen. EENT: No deficits noted. Neuro: No deficits noted. Cardiovascular: No deficits noted. Respiratory: No deficits noted. GI: Reports constipation. : No signs and/or symptoms were reported regarding the genitourinary system. Derm: No deficits noted. Musculoskeletal: No deficits noted. Historical: - Allergies: 11:12 No Known Allergies; la1 - PMHx: 11:12 EDEMA; la1 - Immunization history:: Adult Immunizations up to date. - Social history:: Smoking status: Patient/guardian denies using tobacco. - Ebola Screening: : No symptoms or risks identified at this time. Screenin:24 Abuse screen: Denies threats or abuse. Denies injuries from another. Nutritional bp screening: No deficits noted. Tuberculosis screening: No symptoms or risk factors identified. Fall Risk None identified. Assessment: 11:23 General: SEE TRIAGE NOTE. bp 12:00 GI: Bowel sounds present X 4 quads. Abd is soft X 4 quads. bp 12:30 Reassessment: FURTHER RAD STUDIES PENDING. VS STABLE. bp 13:43 Reassessment: PT D/C HOME AMBULATORY, DX WITH CONSTIPATION. bp Vital Signs: 11:13 BP 135 / 95; Pulse 81; Resp 16; Temp 98.1; Pulse Ox 100% on R/A; Weight 136.08 kg; la1 Height 6 ft. 2 in. (187.96 cm); 12:52 BP 127 / 83; Pulse 68; Resp 16; Pulse Ox 99% ; bp 13:44 BP 125 / 80; Pulse 72; Resp 16; Temp 98; Pulse Ox 100% ; bp 11:13 Body Mass Index 38.52 (136.08 kg, 187.96 cm) la1 ED Course: 11:01 Patient arrived in ED. mr 11:01 Faisal Gastelum MD is Private Physician. mr 11:11 Arm band placed on left wrist. la1 11:12 Triage completed. la1 11:16 Bryan Gibson NP is PHCP. pm1 11:16 Erasmo Centeno MD is Attending Physician. pm1 11:22 Benjie Mojica, TISHA is Primary Nurse. bp 11:24 Patient has correct armband on for positive identification. Bed in low position. Call bp light in reach. Side rails up X2. 12:51 Abdomen 1 View (KUB) XRAY In Process Unspecified. EDMS 13:45 No provider procedures requiring assistance completed. Patient did not have IV access bp during this emergency room visit. Administered Medications: No medications were administered Outcome: 13:10 Discharge ordered by MD. pm1 13:45 Discharged to home ambulatory. bp 13:45 Condition: stable 13:45 Discharge instructions given to patient, Instructed on discharge instructions, follow up and referral plans. medication usage, Demonstrated understanding of instructions, follow-up care, medications, Prescriptions given X 1. 13:46 Patient left the ED. bp Signatures: Dispatcher [employer] EDVT FrankErlinda, Delta, RN RN la1 Bryan Gibson NP [employer] TEAM LEADER pm1 Benjie Mojica, RN RN bp
[2019-02-13 22:53] VITALS: BP 111/85; TEMP 97.9; O2SAT 99
== END 2019-02-13 13:46 | disposition home or self-care (01) ==
LOC: ER 10:58
DX: K59.00 Constipation, unspecified (principal)
CPT/HCPCS: 74018; 99283

== ENCOUNTER 2019-02-14 16:52 | Emergency (ER) | payer OTHER ==
--- NOTE | 2019-02-14 18:01 | ER ---
Nurse's Notes [facility] Name: Conner Hargrove Jr Age: 63 yrs Sex: Male : 1955 Arrival Date: 02/14/2019 Time: 16:53 Bed 19 Private MD: Diagnosis: Abdominal tenderness;Constipation Presentation: 02/14 17:04 Presenting complaint: Patient states: "I was just seen here yesterday and I took the aa5 laxative they gave me yesterday and today and I still have no relief". Transition of care: patient was not received from another setting of care. Onset of symptoms was February 14, 2019. Risk Assessment: Do you want to hurt yourself or someone else? Patient reports no desire to harm self or others. Initial Sepsis Screen: Does the patient meet any 2 criteria? No. Patient's initial sepsis screen is negative. Does the patient have a suspected source of infection? No. Patient's initial sepsis screen is negative. Care prior to arrival: None. 17:04 Method Of Arrival: Ambulatory aa5 17:04 Acuity: PAKO 3 aa5 Historical: - Allergies: 17:05 No Known Allergies; aa5 - PMHx: 17:05 EDEMA; aa5 - Immunization history:: Flu vaccine is not up to date. - Social history:: Smoking status: Patient/guardian denies using tobacco. - Ebola Screening: : No symptoms or risks identified at this time. - Family history:: not pertinent. Screenin:21 Abuse screen: Denies threats or abuse. Denies injuries from another. Nutritional aj1 screening: No deficits noted. Tuberculosis screening: No symptoms or risk factors identified. Fall Risk None identified. Assessment: 18:21 General: Appears in no apparent distress. comfortable, Behavior is calm, cooperative, aj1 appropriate for age. Pain: Complains of pain in abdomen. Neuro: Level of Consciousness is awake, alert, obeys commands, Oriented to person, place, time, situation. Cardiovascular: Patient's skin is warm and dry. Respiratory: Airway is patent Respiratory effort is even, unlabored, Respiratory pattern is regular, symmetrical. GI: Abdomen is round Bowel sounds present X 4 quads. Abd is soft X 4 quads Reports bloating, constipation. : No signs and/or symptoms were reported regarding the genitourinary system. EENT: No signs and/or symptoms were reported regarding the EENT system. Derm: No signs and/or symptoms reported regarding the dermatologic system. Skin is pink, warm \\T\\ dry. normal. Musculoskeletal: No signs and/or symptoms reported regarding the musculoskeletal system. Circulation, motion, and sensation intact. Vital Signs: 17:06 BP 121 / 69; Pulse 71; Resp 18 S; Temp 97.0(TE); Pulse Ox 97% on R/A; Weight 136.08 kg aa5 (R); Height 6 ft. 2 in. (187.96 cm) (R); Pain 3/10; 17:06 Body Mass Index 38.52 (136.08 kg, 187.96 cm) aa5 ED Course: 16:53 Patient arrived in ED. as 17:04 Arm band placed on. aa5 17:05 Triage completed. aa5 17:37 Erasmo Centeno MD is Attending Physician. [facility] 17:44 Brandi Goddard RN is Primary Nurse. aj1 17:49 Oral contrast given. 2 17:59 Meg Akins MD is Referral Physician. [facility] 18:21 Patient has correct armband on for positive identification. aj1 18:21 No provider procedures requiring assistance completed. Patient did not have IV access aj1 during this emergency room visit. Administered Medications: 18:00 Not Given (Patient Refused): Lactulose 30 grams 45 ml PO once aj1 18:01 Not Given (Patient Refused): Dulcolax Suppository 10 mg [place] once aj1 18:02 CANCELLED (Physician Discretion): NS 0.9% 1000 ml IV at 1 bolus Per protocol; 1000 mL aj1 bolus Outcome: 18:00 Discharge ordered by . [facility] 18:21 Discharged to home ambulatory. aj1 18:21 Condition: good 18:21 Discharge instructions given to patient, Instructed on discharge instructions, follow up and referral plans. medication usage, Demonstrated understanding of instructions, follow-up care, medications, Prescriptions given X 3. 18:23 Patient left the ED. aj1 Signatures: Brandi Goddard, RN RN aj1 Erasmo Centeno MD MD cha Martinez, Amelia as Calderon, Audri, RN RN [facility] July Guerrero [facility]
--- NOTE | 2019-02-14 18:01 | EDPHYS ---
Physician Documentation [facility] Name: Conner Hargrove Jr Age: 63 yrs Sex: Male : 1955 Arrival Date: 02/14/2019 Time: 16:53 Bed 19 Private MD: ED Physician Erasmo Centeno HPI: 02/14 17:57 This 63 yrs old Male presents to ER via Ambulatory with complaints of laura Constipation. 17:57 The patient presents with abdominal pain in the lower abdomen, abdominal distention in laura the upper abdomen, in the lower abdomen. Onset: The symptoms/episode began/occurred 1 day(s) ago. The symptoms do not radiate. Associated signs and symptoms: none. Modifying factors: The symptoms are alleviated by nothing, the symptoms are aggravated by nothing. Severity of pain: At its worst the pain was mild in the emergency department the pain is unchanged. The patient has not experienced similar symptoms in the past. Historical: - Allergies: 17:05 No Known Allergies; aa5 - PMHx: 17:05 EDEMA; aa5 - Immunization history:: Flu vaccine is not up to date. - Social history:: Smoking status: Patient/guardian denies using tobacco. - Ebola Screening: : No symptoms or risks identified at this time. - Family history:: not pertinent. ROS: 17:57 Constitutional: Negative for fever, chills, and weight loss, Eyes: Negative for injury, laura pain, redness, and discharge, ENT: Negative for injury, pain, and discharge, Neck: Negative for injury, pain, and swelling, Cardiovascular: Negative for chest pain, palpitations, and edema, Respiratory: Negative for shortness of breath, cough, wheezing, and pleuritic chest pain, Back: Negative for injury and pain, : Negative for injury, bleeding, discharge, and swelling, MS/Extremity: Negative for injury and deformity, Skin: Negative for injury, rash, and discoloration, Neuro: Negative for headache, weakness, numbness, tingling, and seizure, Psych: Negative for depression, anxiety, suicide ideation, homicidal ideation, and hallucinations, Allergy/Immunology: Negative for hives, rash, and allergies, Endocrine: Negative for neck swelling, polydipsia, polyuria, polyphagia, and marked weight changes, Hematologic/Lymphatic: Negative for swollen nodes, abnormal bleeding, and unusual bruising. 17:57 Abdomen/GI: Positive for abdominal pain, constipation. Exam: 17:57 Constitutional: This is a well developed, well nourished patient who is awake, alert, laura and in no acute distress. Head/Face: Normocephalic, atraumatic. Eyes: Pupils equal round and reactive to light, extra-ocular motions intact. Lids and lashes normal. Conjunctiva and sclera are non-icteric and not injected. Cornea within normal limits. Periorbital areas with no swelling, redness, or edema. ENT: Nares patent. No nasal discharge, no septal abnormalities noted. Tympanic membranes are normal and external auditory canals are clear. Oropharynx with no redness, swelling, or masses, exudates, or evidence of obstruction, uvula midline. Mucous membranes moist. Neck: Trachea midline, no thyromegaly or masses palpated, and no cervical lymphadenopathy. Supple, full range of motion without nuchal rigidity, or vertebral point tenderness. No Meningismus. Chest/axilla: Normal chest wall appearance and motion. Nontender with no deformity. No lesions are appreciated. Cardiovascular: Regular rate and rhythm with a normal S1 and S2. No gallops, murmurs, or rubs. Normal PMI, no JVD. No pulse deficits. Respiratory: Lungs have equal breath sounds bilaterally, clear to auscultation and percussion. No rales, rhonchi or wheezes noted. No increased work of breathing, no retractions or nasal flaring. Abdomen/GI: Soft, non-tender, with normal bowel sounds. No distension or tympany. No guarding or rebound. No evidence of tenderness throughout. Back: No spinal tenderness. No costovertebral tenderness. Full range of motion. Male : Normal genitalia with no discharge or lesions. Skin: Warm, dry with normal turgor. Normal color with no rashes, no lesions, and no evidence of cellulitis. MS/ Extremity: Pulses equal, no cyanosis. Neurovascular intact. Full, normal range of motion. Neuro: Awake and alert, GCS 15, oriented to person, place, time, and situation. Cranial nerves II-XII grossly intact. Motor strength 5/5 in all extremities. Sensory grossly intact. Cerebellar exam normal. Normal gait. Psych: Awake, alert, with orientation to person, place and time. Behavior, mood, and affect are within normal limits. Vital Signs: 17:06 BP 121 / 69; Pulse 71; Resp 18 S; Temp 97.0(TE); Pulse Ox 97% on R/A; Weight 136.08 kg aa5 (R); Height 6 ft. 2 in. (187.96 cm) (R); Pain 3/10; 17:06 Body Mass Index 38.52 (136.08 kg, 187.96 cm) aa5 MDM: 17:37 Patient medically screened. [facility] 17:59 Data reviewed: vital signs, nurses notes. [facility] Administered Medications: 18:00 Not Given (Patient Refused): Lactulose 30 grams 45 ml PO once aj1 18:01 Not Given (Patient Refused): Dulcolax Suppository 10 mg [place] once aj1 18:02 CANCELLED (Physician Discretion): NS 0.9% 1000 ml IV at 1 bolus Per protocol; 1000 mL aj1 bolus Disposition: 02/14/19 18:00 Discharged to Home. Impression: Abdominal tenderness, Constipation. - Condition is Stable. - Discharge Instructions: Abdominal Pain, Adult, Constipation, Adult, Constipation, Adult, [id number], Abdominal Pain, Adult, [id number]. - Prescriptions for Lactulose 10 gram/15 mL Oral Solution - take 30 milliliters by ORAL route every 8 hours; 300 milliliter. Dulcolax 10 mg Rectal Suppository - insert 1 suppository by RECTAL route every 12 hours As needed; 10 suppository. Miralax 17 gram/dose Oral - take 1 packet by ORAL route every 12 hours dilute powder in 8 ounces of water or juice; 20 packet. - Medication Reconciliation Form, Thank You Letter, Antibiotic Education, Prescription Opioid Use form. - Follow up: Private Physician; When: 2 - 3 days; Reason: Recheck today's complaints, Continuance of care, Re-evaluation by your physician. Follow up: Meg Akins MD; When: 2 - 3 days; Reason: Recheck today's complaints, Continuance of care, Re-evaluation by your physician. - Problem is new. - Symptoms have improved. Signatures: Dispatcher [employer] Brandi Velasquez RN RN aj1 Erasmo Centeno MD MD cha Calderon, Audri RN RN aa5 Corrections: (The following items were deleted from the chart) 17:49 17:40 Chest Single View+RAD.RAD.BRZ ordered. [facility] 18:01 17:39 Cardiac monitoring ordered. [place] [id number] 18: 17:39 EKG - Nurse/Tech ordered. [place] [id number] 18: 17:39 IV Saline Lock ordered. [place] [id number] 18: 17:39 Labs collected and sent ordered. [place] [id number] 18: 17:39 Urine Dipstick-Ancillary ordered. [place] [id number] 18:02 17:39 Oxygen Per Protocol ordered. [place] [id number] 18: 17:39 O2 Sat Monitoring ordered. [place] [id number] 18: 17:39 NS 0.9% 1000 ml IV at 1 bolus Per protocol; 1000 mL bolus ordered. [place] [id number] 18:14 17:40 Abdomen Pelvis W Con+CT.RAD.BRZ ordered. [facility] 18:23 18:00 02/14/2019 18:00 Discharged to Home. Impression: Abdominal tenderness; aj1 Constipation. Condition is Stable. Forms are Medication Reconciliation Form, Thank You Letter, Antibiotic Education, Prescription Opioid Use. Follow up: Private Physician; When: 2 - 3 days; Reason: Recheck today's complaints, Continuance of care, Re-evaluation by your physician. Follow up: Meg Akins; When: 2 - 3 days; Reason: Recheck today's complaints, Continuance of care, Re-evaluation by your physician. Problem is new. Symptoms have improved. laura
[2019-02-14 18:28] VITALS: BP 121/69; TEMP 97; O2SAT 97
== END 2019-02-14 18:23 | disposition home or self-care (01) ==
LOC: ER 16:52
DX: K59.00 Constipation, unspecified (principal); R10.819 Abdominal tenderness, unspecified site
CPT/HCPCS: 99282